=== PATIENT | male | born 1950 ===

== ENCOUNTER 2016-12-01 08:24 | Day surgery (SDC) | payer MEDICARE ==
[2016-11-23 06:51] VITALS: BMI 24.3
[2016-12-01] MEDS ORDERED: Propofol 10 mg/ml Inj (20 ML) ONE (09:56)
[2016-12-01] MEDS ORDERED: Sodium Chloride 0.9% 1,000 ML IV SCH (10:30)
[2016-12-01 11:34] VITALS: BP 139/82; PULSE 53; RESP 18; TEMP 98.1; O2SAT 100
== END 2016-12-01 12:21 | disposition home or self-care (01) ==
LOC: ENDO 08:24
PROVIDERS: ATTEND Internal Medicine Gastroenterology
DX: K57.30 Diverticulosis of large intestine without perforation or abscess without bleeding (principal); Q43.8 Other specified congenital malformations of intestine; K64.8 Other hemorrhoids; R13.10 Dysphagia, unspecified; I10 Essential (primary) hypertension
CPT/HCPCS: 45378; J2704; J7040

== ENCOUNTER 2017-07-03 08:15 | Day surgery (SDC) | payer MEDICARE ==
[2017-06-26 13:38] VITALS: BMI 23.5
[2017-07-03] MEDS ORDERED: Propofol 10 mg/ml Inj (20 ML) ONE (10:42)
[2017-07-03] MEDS ORDERED: Sodium Chloride 0.9% 1,000 ML IV SCH (11:15)
[2017-07-03 12:12] VITALS: BP 115/73; PULSE 56; TEMP 97.4; O2SAT 99
[2017-07-03 13:05] VITALS: RESP 16
== END 2017-07-03 12:49 | disposition home or self-care (01) ==
LOC: ENDO 08:15
PROVIDERS: ATTEND Internal Medicine Gastroenterology
DX: K25.9 Gastric ulcer, unspecified as acute or chronic, without hemorrhage or perforation (principal); K26.9 Duodenal ulcer, unspecified as acute or chronic, without hemorrhage or perforation; K29.80 Duodenitis without bleeding; K29.50 Unspecified chronic gastritis without bleeding; K31.9 Disease of stomach and duodenum, unspecified; I10 Essential (primary) hypertension
CPT/HCPCS: 43239; 88305; 88342; J2704; J7040 ×2

== ENCOUNTER 2017-11-20 09:34 | Day surgery (SDC) | payer MEDICARE ==
[2017-06-26 13:38] VITALS: BMI 23.5
[2017-11-20] MEDS ORDERED: Propofol 10 mg/ml Inj (20 ML) ONE (12:09)
[2017-11-20 12:57] VITALS: O2SAT 99
[2017-11-20 13:57] VITALS: BP 121/77; PULSE 55; RESP 14; TEMP 98.1
== END 2017-11-20 14:35 | disposition home or self-care (01) ==
LOC: ENDO 09:34
PROVIDERS: ATTEND Internal Medicine Gastroenterology
DX: K25.7 Chronic gastric ulcer without hemorrhage or perforation (principal); K26.9 Duodenal ulcer, unspecified as acute or chronic, without hemorrhage or perforation; K29.80 Duodenitis without bleeding; K29.50 Unspecified chronic gastritis without bleeding; E78.00 Pure hypercholesterolemia, unspecified
CPT/HCPCS: 43239; 88305; 88342; J2001; J2704; J7040

== ENCOUNTER 2018-07-01 07:34 | Outpatient (CLI) | payer MEDICARE | END 2018-07-01 07:35 | disposition home or self-care (01) | LOC: CARDIO 07:34 ==

== ENCOUNTER 2018-10-14 13:38 | Outpatient (CLI) | payer MEDICARE | END 2018-10-14 13:39 | disposition home or self-care (01) | LOC: RAD 13:38 | DX: M54.5 Low back pain (principal) ==